=== PATIENT | female | born 1970 | race African-American/Black ===

== ENCOUNTER 2019-09-07 12:49 | Emergency (ER) | payer OTHER ==
[~2019-09-07] VITALS: Ht 160 cm; Wt 54.4 kg
[2019-09-07 12:57] VITALS: BP 111/71
[2019-09-07] MEDS ORDERED: NORFLEX100 MG PO (13:24)
[2019-09-07] MEDS ORDERED: IBUPROFEN 600600 M1 PO (13:24)
== END 2019-09-07 14:49 | disposition home or self-care (01) ==
LOC: ER 12:49
DX: S16.1XXA Strain of muscle, fascia and tendon at neck level, initial encounter (principal); Z90.710 Acquired absence of both cervix and uterus; V89.2XXA Person injured in unspecified motor-vehicle accident, traffic, initial encounter; Y93.89 Activity, other specified; Y92.89 Other specified places as the place of occurrence of the external cause; Y99.8 Other external cause status